=== PATIENT | male | born 1960 | race Caucasian/White ===

== ENCOUNTER 2024-08-29 09:38 | Emergency (ER) | payer BC ==
[~2024-08-29] VITALS: Ht 162.6 cm; Wt 71.2 kg
[2024-08-29 09:50] VITALS: TEMP 98.5
[2024-08-29 10:09] LABS: BASOPHILS % (AUTO) 0.5 % (0.0-2.0); EOSINOPHILS # (AUTO) 0.1 K/uL (0.0-0.7); HEMATOCRIT 29 % (39-51); HEMOGLOBIN 9.7 g/dL (13.5-17.5); LYMPHOCYTES # (AUTO) 1.4 K/uL (0.8-4.8); LYMPHOCYTES % (AUTO) 18.2 % (20.0-44.0); MEAN CORPUSCULAR HEMOGLOBIN 32 PG (26.0-33.0); MEAN CORPUSCULAR HGB CONC 34 g/dl (31.0-36.0); MEAN CORPUSCULAR VOLUME 94 fL (80-96); MONOCYTES # (AUTO) 0.6 K/uL (0.1-1.30); MONOCYTES % (AUTO) 8.4 % (2.0-12.0); NEUTROPHILS # (AUTO) 5.3 K/uL (1.8-8.9); NEUTROPHILS % (AUTO) 70.9 % (43.0-81.0); PLATELET COUNT (AUTO) 315 K/uL (150-450); RED BLOOD CELL COUNT(AUTO) 3.05 MIL/uL (4.5-6.0); RED CELL DISTRIBUTION WIDTH 13.1 % (11.5-15.0); WHITE BLOOD COUNT (AUTO) 7.4 K/uL (4.3-11.0)
[2024-08-29 10:20] LABS: CALCIUM, SERUM 8.5 mg/dL (8.5-10.1); CARBON DIOXIDE 19 mmol/L (21-32); CHLORIDE 109 mmol/L (98-107); CREATININE 3.7 mg/dL (0.6-1.3); GLUCOSE 112 mg/dL (74-106); POTASSIUM 4.2 mmol/L (3.5-5.1); SODIUM SERUM 140 mmol/L (136-145); UREA NITROGEN, BLOOD 34 mg/dL (7-18)
[2024-08-29 10:22] LABS: INR 1.07 (0.91-1.10); PARTIAL THROMBOPLASTIN TIME 25.8 SEC (24.3-34.3); PROTHROMBIN TIME 11.3 SECS (9.2-11.1)
[2024-08-29 10:34] LABS: ALANINE AMINOTRANSFERASE 61 U/L (12-78); ALBUMIN 3.3 g/dL (3.4-5.0); ALKALINE PHOSPHATASE 102 U/L (46-116); ASPARTATE AMINOTRANSFERASE 54 U/L (15-37); BILIRUBIN,DIRECT 0.1 mg/dL (0.0-0.2); BILIRUBIN,TOTAL 0.5 mg/dL (0.2-1.0); NT-PRO BNP 21300 pg/mL (0-125); TOTAL PROTEIN, SERUM 9.3 g/dL (6.4-8.2)
[2024-08-29] MEDS ORDERED: FUROSEMIDE 40 MG/4 ML VIAL ONE (11:04)
[2024-08-29] MEDS: FUROSEMIDE 40 MG/4 ML VIAL IV ONE (11:10)
[2024-08-29] MEDS ORDERED: ROSU20TA2 PO (13:13)
[2024-08-29] MEDS ORDERED: AMLO10TA4 PO (13:13)
[2024-08-29] MEDS ORDERED: DAPA10TA PO (13:13)
[2024-08-29] MEDS ORDERED: KERENDIA PO (13:13)
[2024-08-29] MEDS ORDERED: TAMS-12 PO (13:13)
[2024-08-29] MEDS ORDERED: LOSA50TA39 PO (13:13)
[2024-08-29] MEDS ORDERED: CYAN-51 PO (13:13)
[2024-08-29] MEDS ORDERED: METF-442 PO (13:13)
[2024-08-29] MEDS ORDERED: GABA300C PO (13:13)
[2024-08-29 14:11] VITALS: BP 164/94; O2SAT 98
== END 2024-08-29 15:46 | disposition short-term general hospital (02) ==
LOC: ER 09:48
DX: I13.0 Hypertensive heart and chronic kidney disease with heart failure and stage 1 through stage 4 chronic kidney disease, or unspecified chronic kidney disease (principal); E11.22 Type 2 diabetes mellitus with diabetic chronic kidney disease; N18.9 Chronic kidney disease, unspecified; R06.02 Shortness of breath
CPT/HCPCS: 99285; 96374; 71045; 93005 ×2; 85025; 80048; 80076; 36415; 84484 ×3; 85730; 83880; J1940